=== PATIENT | female | born 1955 | race Caucasian/White ===

== ENCOUNTER → 2021-02-25 | Outpatient (CLI) | payer MEDICARE ==
[~2021-02-25] MED LIST: AUGMENTIN 875-1 EACH PO; BENTYL 20MG TAB20 MG PO; FLORASTOR250 MG PO
== END ==
LOC: HEART 5 02-18 14:30
DX: I09.9 Rheumatic heart disease, unspecified (principal); R00.0 Tachycardia, unspecified

== ENCOUNTER → 2021-03-16 | Outpatient (CLI) | payer MEDICARE | LOC: KOH-I 10:24 | DX: S99.929A Unspecified injury of unspecified foot, initial encounter (principal); W19.XXXA Unspecified fall, initial encounter; M19.071 Primary osteoarthritis, right ankle and foot | CPT/HCPCS: 73630 ==